=== PATIENT | male | born 2005 | race Caucasian/White ===

== ENCOUNTER 2023-04-29 20:33 | Emergency (ER) | payer SELFPAY ==
[2023-04-29 20:35] VITALS: BP 137/85; PULSE 68; RESP 15; TEMP 36.2; O2SAT 97; BMI 28.3
--- NOTE | 2023-04-29 21:06 | EX.ED.VIS.PS ---
HPI <RADHA Owen - Last Filed: 04/29/23 21:41> HPI - Psych History of Present Illness Chief Complaint: Suicidal Narrative Narrative: Patient presenting today with suicidal thoughts. He reports that over the past 2 years he has had daily thoughts of suicide. He reports that he does not usually have a specific plan, they are mainly passive thoughts. However, today they became much more severe and persistent. He reports that he had thoughts of stabbing himself in the stomach with a knife with the intent to kill himself. He reports that he has had 2 concussions in his life from wrestling and thinks that that could be the cause of his depression. He does take Lexapro and is compliant with this. He does not follow with a counselor or with psychiatry. He did have a PCP but has not seen her for several months but is still receiving the Lexapro prescriptions. He has never been placed in a psychiatric facility. He denies substance use, visual/auditory/tactile hallucinations, homicidal thoughts. He reports that he does feel paranoid when left alone as if somebody is watching him. <Dr. Heraclio Mcgee MD - Last Filed: 05/01/23 21:52> HPI - Psych History of Present Illness Detail of Chief Complaint: Suicidal thoughts and depression PFSH <RADHA Owen - Last Filed: 04/29/23 21:41> PFSH Home Medications escitalopram oxalate 10 mg tablet 10 mg PO DAILY 04/29/23 [History Last Taken Unknown] Allergy/AdvReac Type Severity Reaction Status Date / Time No Known Allergies Allergy Verified 04/29/23 20:35 Social History Smoking Status: Never smoker ROS <RADHA Owen - Last Filed: 04/29/23 21:41> ROS ED Constitutional Constitutional ED: Denies chills or fever(s) Cardiovascular Cardiovascular: Denies chest pain Respiratory/Chest Respiratory/Chest: Denies cough or dyspnea Gastrointestinal Gastrointestinal: Denies abdominal pain, nausea or vomiting Musculoskeletal Musculoskeletal: Denies arthralgias or myalgias Integumentary Denies rash Neurologic Neurologic: Denies weakness Psychiatric Psychiatric: Reports depression, paranoia, suicidal ideation and suicidal thoughts EXAM <RADHA Owen - Last Filed: 04/29/23 21:41> Physical Exam Const Vital Signs: 04/29/23 20:35 04/29/23 21:35 04/29/23 22:00 Temperature 97.2 F L Temperature Source Temporal Pulse Rate 68 Respiratory Rate 15 16 16 Blood Pressure 137/85 H Blood Pressure Mean 102 Pulse Ox 97 Oxygen Delivery Method Room Air 04/29/23 23:00 04/30/23 00:00 04/30/23 01:00 Temperature Temperature Source Pulse Rate Respiratory Rate 16 16 15 Blood Pressure Blood Pressure Mean Pulse Ox Oxygen Delivery Method 04/30/23 01:50 Temperature Temperature Source Pulse Rate 69 Respiratory Rate 16 Blood Pressure 110/65 Blood Pressure Mean 80 Pulse Ox 98 Oxygen Delivery Method Room Air Positive well nourished, well developed and no apparent distress General Appearance ED: well developed HEENT Reports normocephalic and head/scalp atraumatic Mouth ED: Yes moist mucous membranes normal Eyes PERRL and EOMs intact bilaterally Neck full ROM and supple Chest Wall inspection of chest normal Resp normal respiratory effort and clear to auscultation bilaterally Cardio regular rate and regular rhythm GI soft to palpation, non-tender, non-distended and no masses Back/Spine normal ROM and normal to inspection Extremity normal to inspection and full ROM Neuro oriented x3, CN's II-XII intact bilaterally, moves all extremities, no focal motor deficits and no sensory deficits noted Sensorium / Orientation: awake and alert Psych cooperative Appearance: grossly normal Attitude: calm Activity / Motor Behavior: appropriate eye contact Speech: normal speech Mood & Affect: depressed Thought Content: suicidality, No homicidality, phobia(s) and No hallucination(s) Attention / Concentration: attention grossly intact Memory / Cognition: memory grossly intact Insight: poor Judgement: poor Skin no rashes or lesions noted and no wounds <Dr. Heraclio Mcgee MD - Last Filed: 05/01/23 21:52> Physical Exam Const Vital Signs: 04/29/23 20:35 04/29/23 21:35 04/29/23 22:00 Temperature 97.2 F L Temperature Source Temporal Pulse Rate 68 Respiratory Rate 15 16 16 Blood Pressure 137/85 H Blood Pressure Mean 102 Pulse Ox 97 Oxygen Delivery Method Room Air 04/29/23 23:00 04/30/23 00:00 04/30/23 01:00 Temperature Temperature Source Pulse Rate Respiratory Rate 16 16 15 Blood Pressure Blood Pressure Mean Pulse Ox Oxygen Delivery Method 04/30/23 01:50 Temperature Temperature Source Pulse Rate 69 Respiratory Rate 16 Blood Pressure 110/65 Blood Pressure Mean 80 Pulse Ox 98 Oxygen Delivery Method Room Air <Dr. Michele Lyman, - Last Filed: 04/30/23 04:40> Physical Exam Const Vital Signs: 04/29/23 20:35 04/29/23 21:35 04/29/23 22:00 Temperature 97.2 F L Temperature Source Temporal Pulse Rate 68 Respiratory Rate 15 16 16 Blood Pressure 137/85 H Blood Pressure Mean 102 Pulse Ox 97 Oxygen Delivery Method Room Air 04/29/23 23:00 04/30/23 00:00 04/30/23 01:00 Temperature Temperature Source Pulse Rate Respiratory Rate 16 16 15 Blood Pressure Blood Pressure Mean Pulse Ox Oxygen Delivery Method 04/30/23 01:50 Temperature Temperature Source Pulse Rate 69 Respiratory Rate 16 Blood Pressure 110/65 Blood Pressure Mean 80 Pulse Ox 98 Oxygen Delivery Method Room Air MDM <RADHA Owen - Last Filed: 04/29/23 21:41> MDM MDM Narrative Medical decision making narrative: Patient presenting due to suicidal thoughts. He reports that he has had these daily over the past 2 years, however they are mainly passive thoughts. Today they became more constant and he had a specific plan in place which was to stab himself in the stomach with a knife. He reports that he does still feel suicidal. He has never been placed in psychiatric facility before. Medical: Clearance labs will be obtained and crisis will evaluate patient. Lab Data Labs: Laboratory Results - last 24 hr 04/29/23 21:33 WBC 8.0 RBC 5.39 Hgb 15.4 Hct 44.8 MCV 83.1 MCH 28.6 MCHC 34.4 RDW Std Deviation 36.1 RDW Coeff of Vickie 11.9 Plt Count 251 MPV 10.7 Immature Gran % (Auto) 0.100 Neut % (Auto) 59.5 Lymph % (Auto) 27.2 [place] % (Auto) 5.8 Eos % (Auto) 6.9 H Baso % (Auto) 0.5 Absolute Neuts (auto) 4.7 Absolute Lymphs (auto) 2.17 Nucleated RBC % 0 Sodium 140 Potassium 3.8 Chloride 109 H Carbon Dioxide 27.0 Anion Gap 4 L BUN 20 H Creatinine 0.97 Estim Creat Clear Calc 112.47 Est GFR (MDRD) Af Amer 127 Est GFR (MDRD) Non-Af 105 BUN/Creatinine Ratio 20.6 H Glucose 102 Calcium 9.7 Urine Opiates Screen NEGATIVE Urine Methadone Screen NEGATIVE Ur Barbiturates Screen NEGATIVE Ur Phencyclidine Scrn NEGATIVE Ur Amphetamines Screen NEGATIVE MDMA (Ecstasy) Screen NEGATIVE U Benzodiazepines Scrn NEGATIVE Urine Cocaine Screen NEGATIVE U Cannabinoids Screen NEGATIVE Ur Drug Screen Comment Ethyl Alcohol < 3.0 <Dr. Heraclio Mcgee MD - Last Filed: 05/01/23 21:52> MDM MDM Narrative Medical decision making narrative: Patient presenting due to suicidal thoughts. He reports that he has had these daily over the past 2 years, however they are mainly passive thoughts. Today they became more constant and he had a specific plan in place which was to stab himself in the stomach with a knife. He reports that he does still feel suicidal. He has never been placed in psychiatric facility before. Medical: Clearance labs will be obtained and crisis will evaluate patient. I have personally performed a face to face assessment of the patient and have reviewed the SG Note. I performed a substantive portion of the visit including all aspects of the following. My melendez findings include: History is remarkable for depression for the past 2 years. He is never attempted suicide in the past. He had thoughts of suicide for the past 2 years. Worse tonight. This is the first time that he had a plan. He would stab himself in the epigastric area. He denies drug or alcohol use. He denies headache, visual, ocular auditory symptoms. He denies cardiac or respiratory symptoms. He denies GI symptoms. He denies urologic symptoms. Exam is remarkable for patient admitted he is sad depressed under significant financial stress. He states he is concerned because he never had a plan of killing himself. He is psychomotor skills are slow. His significant other is here with him. She confirmed that they are under financial stress. There is no issues at work. There is no issues with his significant other. Significant arthritic confirmed/substantiated this. HEENT exam is unremarkable. Neck is supple. Lungs are clear auscultation. Heart is regular. Rate is normal. There is no murmur, gallop or rub. Abdomen is benign. Is alert is oriented x 3. Motor sensor intact. There is no dermatologic lesions noted. There is no evidence of prior self injury. Medical Decision Making with patient being depressed lethal plan and concern he will act on this plan is still has suicidal thoughts appropriate labs were obtained for medical clearance and counseling center will be paged for evaluation and probable admission Other additions or changes: [None] Lab Data Lab results narrative: Patient's labs were pending at the time of transfer of care [address] Menchaca. Labs: Laboratory Results - last 24 hr 04/29/23 21:33 WBC 8.0 RBC 5.39 Hgb 15.4 Hct 44.8 MCV 83.1 MCH 28.6 MCHC 34.4 RDW Std Deviation 36.1 RDW Coeff of Vickie 11.9 Plt Count 251 MPV 10.7 Immature Gran % (Auto) 0.100 Neut % (Auto) 59.5 Lymph % (Auto) 27.2 [place] % (Auto) 5.8 Eos % (Auto) 6.9 H Baso % (Auto) 0.5 Absolute Neuts (auto) 4.7 Absolute Lymphs (auto) 2.17 Nucleated RBC % 0 Sodium 140 Potassium 3.8 Chloride 109 H Carbon Dioxide 27.0 Anion Gap 4 L BUN 20 H Creatinine 0.97 Estim Creat Clear Calc 112.47 Est GFR (MDRD) Af Amer 127 Est GFR (MDRD) Non-Af 105 BUN/Creatinine Ratio 20.6 H Glucose 102 Calcium 9.7 Urine Opiates Screen NEGATIVE Urine Methadone Screen NEGATIVE Ur Barbiturates Screen NEGATIVE Ur Phencyclidine Scrn NEGATIVE Ur Amphetamines Screen NEGATIVE MDMA (Ecstasy) Screen NEGATIVE U Benzodiazepines Scrn NEGATIVE Urine Cocaine Screen NEGATIVE U Cannabinoids Screen NEGATIVE Ur Drug Screen Comment Ethyl Alcohol < 3.0 <Dr. Michele Lyman, DO - Last Filed: 04/30/23 04:40> MDM Lab Data Labs: Laboratory Results - last 24 hr 04/29/23 21:33 WBC 8.0 RBC 5.39 Hgb 15.4 Hct 44.8 MCV 83.1 MCH 28.6 MCHC 34.4 RDW Std Deviation 36.1 RDW Coeff of Vickie 11.9 Plt Count 251 MPV 10.7 Immature Gran % (Auto) 0.100 Neut % (Auto) 59.5 Lymph % (Auto) 27.2 [place] % (Auto) 5.8 Eos % (Auto) 6.9 H Baso % (Auto) 0.5 Absolute Neuts (auto) 4.7 Absolute Lymphs (auto) 2.17 Nucleated RBC % 0 Sodium 140 Potassium 3.8 Chloride 109 H Carbon Dioxide 27.0 Anion Gap 4 L BUN 20 H Creatinine 0.97 Estim Creat Clear Calc 112.47 Est GFR (MDRD) Af Amer 127 Est GFR (MDRD) Non-Af 105 BUN/Creatinine Ratio 20.6 H Glucose 102 Calcium 9.7 Urine Opiates Screen NEGATIVE Urine Methadone Screen NEGATIVE Ur Barbiturates Screen NEGATIVE Ur Phencyclidine Scrn NEGATIVE Ur Amphetamines Screen NEGATIVE MDMA (Ecstasy) Screen NEGATIVE U Benzodiazepines Scrn NEGATIVE Urine Cocaine Screen NEGATIVE U Cannabinoids Screen NEGATIVE Ur Drug Screen Comment Ethyl Alcohol < 3.0 Treatment and Re-Evaluation Narrative: Care of the patient was turned over to sc pending labs. CBC was reviewed and was within normal limits. Basic metabolic profile was reviewed and was essentially within normal limits. Urine tox screen was reviewed and was negative. Serum alcohol level was reviewed and was negative. Patient is medically cleared for psychiatric placement. Patient was accepted to [facility]. Patient will be transferred there. [place] slip was filled out and placed on the chart. Discharge Plan Triage Chief Complaint: Suicidal ED Midlevel Provider: Brenna Quiñonez ED Provider: Heraclio Mcgee Dx/Rx/DC Orders Clinical Impression: Suicidal ideations, Depression Prescriptions: No Action escitalopram oxalate 10 mg tablet 10 mg PO DAILY Patient Comments: TAKE 1 TABLET BY MOUTH EVERY DAY Primary Care Provider: Care Physician,No Primary Referrals: Care Physician,No Primary [Primary Care Provider] - Disposition Disposition: Psychiatric Hospital or Unit Discharge Location: [facility] Discharge Date/Time: 04/30/23 09:07
[2023-04-29 21:35] VITALS: RESP 16
[2023-04-29 21:54] LABS: Absolute Lymphocyte Count 2.17 X10^3/uL (0.83-4.51); Absolute Neutrophil Count 4.7 X10^3/uL (2.0-7.7); Basophil# 0.04 X10^3/uL; Basophil% 0.5 % (0-1); Eosinophil# 0.55 X10^3/uL; Eosinophils% 6.9 % (0-5); Hematocrit 44.8 % (40-54); Hemoglobin 15.4 g/dL (13.0-16.5); Lymphocyte # 2.17 X10^3/ul (0.83-4.51); Lymphocyte % 27.2 % (19-41); Mean Corp Hgb Conc 34.4 g/dL (32-36); Mean Corpuscular Hgb 28.6 pg (27.0-32.0); Mean Corpuscular Volume 83.1 fL (80-94); Mean Platelet Vol. 10.7 fl (6.2-12.0); Monocyte# 0.46 X10^3/uL; Monocyte% 5.8 % (0-10); NRBC Flagged by Analyzer 0 % (0-5); Neutrophil # 4.74 X10^3/uL (2.7-7.7); Neutrophil % 59.5 % (47-70); Platelet Count 251 K/mm3 (150-450); RBC Distribution Width CV 11.9 % (11.6-14.6); RBC Distribution Width SD 36.1 fl (35.1-43.9); Red Blood Count 5.39 M/mm3 (4.6-6.2)
[2023-04-29 22:00] VITALS: RESP 16
[2023-04-29 22:07] LABS: Anion Gap 4 (5-15); BUN 20 mg/dL (7-18); BUN/Creat Ratio 20.6 RATIO (10-20); Calcium,Total 9.7 mg/dL (8.5-10.1); Chloride 109 mmol/L (98-107); Creatinine, Serum 0.97 mg/dL (0.70-1.30); EST Glomerular Filtration Rate 105 mL/min (>60); Est Glom Filt Rate - Afr Amer 127 mL/min (>60); Estimated Creatinine Clearance 112.47 ml/min; Glucose 102 mg/dL (74-106); Potassium 3.8 mmol/L (3.5-5.1); Sodium Level 140 mmol/L (136-145)
[2023-04-29 22:09] LABS: Alcohol, Blood (Medical)-Serum < 3.0 mg/dL
[2023-04-29 22:14] LABS: Amphetamine Urine VISTA NEGATIVE (<1000 ng/mL); Barbiturate Urine VISTA NEGATIVE (< 200 ng/mL); Benzodiazepine Urine VISTA NEGATIVE (< 200 ng/mL); Cocaine Urine VISTA NEGATIVE (< 300 ng/mL); Ecstacy Urine VISTA NEGATIVE (< 500 ng/mL); Methadone Urine VISTA NEGATIVE (< 300 ng/mL); PCP Urine VISTA NEGATIVE (< 25 ng/mL); THC Urine VISTA NEGATIVE (< 50 ng/mL); Vista UDS pH Range 5
--- NOTE | 2023-04-29 22:25 | NURSING ---
CALLED [facility]ISIS AT 0 AND FAXED THE CHART
[2023-04-29 23:00] VITALS: RESP 16
[2023-04-30] VITALS (9 sets, daily range): BP systolic 110–113; BP diastolic 65–71; PULSE 67–70; RESP 15–18; TEMP 36.6; O2SAT 98–99
== END 2023-04-30 09:07 ==
PROVIDERS: Physician Assistant; Emergency Provider Emergency Medicine; Visit Provider Emergency Medicine
DX: R45.851 Suicidal ideations (principal); F32.A Depression, unspecified; Z79.899 Other long term (current) drug therapy
CPT/HCPCS: 80048; 80307; 80320; 85025; 99285; G0480

== ENCOUNTER 2023-08-23 09:02 | Emergency (ER) | payer OTHER, SELFPAY ==
[2023-08-23 09:03] VITALS: BP 117/73; PULSE 85; PULSE 88; RESP 16; TEMP 36.2; O2SAT 97; BMI 28.5
--- NOTE | 2023-08-23 09:07 | ED.VIS.CHEST ---
HPI History of Present Illness Chief Complaint: [facility] ?Medication ?Instructions ?Recorded ?Last Taken ?Type escitalopram oxalate 10 mg tablet 10 mg PO DAILY 04/29/23 Unknown History Allergy/AdvReac Type Severity Reaction Status Date / Time No Known Allergies Allergy Verified 08/23/23 09:03 Social History Smoking Status: Never smoker EXAM Physical Exam Const Vital Signs: 08/23/23 09:03 08/23/23 09:03 08/23/23 09:10 Temperature 97.1 F L 97.1 F L Temperature Source Temporal Temporal Pulse Rate 85 88 Respiratory Rate 16 16 Blood Pressure 117/73 Blood Pressure Mean 87 Pulse Ox 97 97 Oxygen Delivery Method Room Air Room Air Room Air 08/23/23 10:41 Temperature 97.8 F Temperature Source Pulse Rate 73 Respiratory Rate 16 Blood Pressure 121/64 H Blood Pressure Mean 83 Pulse Ox 99 Oxygen Delivery Method Heart Score History: Slightly/Non-Suspicious ECG: Normal Age: </= 45 years Risk Factors: No Risk Factors Troponin: </= Normal Limit Score: 0 MDM MDM MDM Narrative Medical decision making narrative: HISTORY OF PRESENT ILLNESS: 18-year-old male presents with concern for chest pain. He states Pain started yesterday. He notes pain is worse with taking a breath and coughing. No bleeding diathesis. No hemoptysis. No leg swelling. No syncope. No family history of early cardiac . No family history of blood clots. Does not smoke or drink. Does not do any illicit drug The patient denies recent surgery in the last 4 weeks or immobilization in the last 3 days, denies previous diagnosis of DVT or PE, hemoptysis, unilateral leg swelling or malignancy with treatment the last 6 months or palliative. No estrogen use noted. Patient denies sudden onset of pain, no tearing sensation, no migratory symptoms, no new numbness, weakness or loss of sensation. Patient denies family history or personal history of Connective tissue disorders (Marfan's Syndrome, Mary Danlos etc) REVIEW OF SYSTEMS: Pertinent positives: Chest pain, cough Pertinent negatives: As per HPI PHYSICAL EXAM: Nursing triage notes reviewed, Vital signs reviewed Constitutional: please see mdm HENT: MMM Eyes: Pupils equal round and reactive to light, Extraocular muscles intact Neck: No stridor, no JVD, full neck ROM Lungs: Clear to auscultation, No wheezing or rales. No increased work of breathing, no conversational dyspnea, no accessory muscle use, no nasal flaring. No respiratory distress noted Heart: Regular rate and rhythm, No murmurs, No rubs and No gallops, 2+ distal pulses (radial, femoral, posterior tibial) in all extremities Abdomen: Soft, there is no tenderness, rigidity, rebound or guarding, no obvious peritoneal signs, no palpable pulsatile abdominal masses, no auscultated abdominal bruit : No CVAT Extremities: No edema Neuro: No focal neurological deficits, cranial nerves II through XII intact, 5/5 strength in all extremities. Intact sensation to light touch in all extremities, 2+ reflexes bilateral patella tendons. Normal gait. No ataxia. Skin: No rash or lesions noted MEDICAL DECISION MAKING: Chief Complaint: Chest pain External records reviewed: No recent cardiac catheterizations, stress test or echocardiograms noted in the chart Factors affecting care: none Social determinants of health: Denies cocaine or methamphetamine History obtained from others: none Consults: none [facility] Narrative: The patient was hemodynamically stable, afebrile and nontoxic-appearing. Exam with reproducible chest wall tenderness over the right pectoralis muscle. Also reproducible tenderness with shoulder external rotation as well as abduction. This consistent with a musculoskeletal etiology. I considered the following differential diagnosis: ACS, arrhythmia, anemia, electrolyte disturbance, pneumonia, pneumothorax, pleurisy, PE While I considered PE as a potential etiology I do not think the patient had a PE. There is medication for deficiency of the chest noted ALL IMAGES (IF OBTAINED) HAVE BEEN PERSONALLY REVIEWED AND INTERPRETED BY MYSELF. EKG with normal sinus rhythm, normal axis, normal intervals, no obvious STEMI, no signs of WPW, ARVD or Brugada syndrome CBC without leukocytosis, severe anemia, no thrombocytopenia. High-sensitivity troponin is negative, no evidence of myocardial ischemia BMP without evidence of significant electrolyte abnormalities, no anion gap, no acute kidney injury. I have personally reviewed the patient's chest x-ray. Chest x-ray is unremarkable for pulmonary edema, pneumothorax, pneumonia or focal cardiopulmonary abnormality. The synthesis of the patient's history, physical exam, labs images suggest no acute life-limiting etiology. Suspected etiology secondary to chest wall pain/inflammation. I completed a HEART Score to screen for Major Adverse Cardiac Event (MACE) in this patient. The evidence indicates that the patient is very low risk for MACE and this is consistent with my clinical intuition. The risk of further workup or hospitalization for MACE is likely higher than the risk of the patient having a MACE. It is, therefore, in the patient?s best interest not to do additional emergent testing or to be hospitalized for MACE at this time. Shared Decision-Making No hospitalization indicated I have discussed with the patient my clinical impression and the result of the HEART Score to screen for MACE, as well as the risks of further testing and hospitalization. The HEART Score shows that the risk for MACE is less than 1%. Although the risk of MACE has not been completely eliminated, the risks of further testing or hospitalization for MACE likely exceed any potential benefit, and the patient agrees with not pursuing further emergent evaluation or hospitalization for MACE at this time. Synthesis of the patient's history, physical exam, The patient and/or family, caregivers express understanding. The patient and/or family, caregivers agrees with the plan. Shared decision making: I will have a discussion with the patient and or visitors regarding risk/benefits of further testing or admission. They will be made aware of of the risk/benefits inherent in this decision they will be given the opportunity to voice understanding. Total critical care time today provided was at least 0 [] minutes. This excludes separately billable procedures. Critical care time (if documented) is secondary to the patient having high probability of clinically significant/life threatening deterioration in the patient's condition which required my urgent intervention. Impression: 1. Chest wall pain Dispo: Discharge This note was generated with [employer] dictation software. It may contain incorrect words, spelling, and punctuation that were not noted in review of the chart prior to signing. Lab Data Labs: Laboratory Results - last 24 hr 08/23/23 09:25 WBC 6.8 RBC 5.17 Hgb 15.1 Hct 43.8 MCV 84.7 MCH 29.2 MCHC 34.5 RDW Std Deviation 36.0 RDW Coeff of Vickie 11.9 Plt Count 232 MPV 10.2 Immature Gran % (Auto) 0.300 Neut % (Auto) 65.1 Lymph % (Auto) 23.3 [place] % (Auto) 6.8 Eos % (Auto) 4.1 Baso % (Auto) 0.4 Absolute Neuts (auto) 4.4 Absolute Lymphs (auto) 1.58 Nucleated RBC % 0 Sodium 139 Potassium 4.0 Chloride 109 H Carbon Dioxide 24.0 Anion Gap 6 BUN 26 H Creatinine 0.96 Estim Creat Clear Calc 113.92 Est GFR (MDRD) Af Amer 129 Est GFR (MDRD) Non-Af 106 BUN/Creatinine Ratio 27.2 H Glucose 94 Calcium 9.2 Troponin I High Sens 12 Radiography Diagnostic Testing: Clinical Impression(s) from Imaging Studies Chest X-Ray 08/23/23 09:40 IMPRESSION: Normal x-ray examination of the chest. Electronically Signed: Angel Akers MD at 10:00 EDT Reading Location ID and State: [address] [place] [address] , Service support , Discharge Plan Triage Chief Complaint: Chest Pain ED Provider: Lopez Garcia Dx/Rx/DC Orders Instructions: ED Chest Wall Strain Prescriptions: No Action escitalopram oxalate 10 mg tablet 10 mg PO DAILY Patient Comments: TAKE 1 TABLET BY MOUTH EVERY DAY Primary Care Provider: Leigha Rasmussen NP Referrals: Leigha Rasmussen NP, [facility] [Primary Care Provider] - Activity Restrictions/Additional Instructions: Thank you for trusting us with your care today! Please take Tylenol (2 pills, 650 mg), ibuprofen (2 pills, 400 mg) every 6 hours as needed for pain and fever control. Please return to the emergency department if your symptoms change or worsen. Please follow with your primary care physician for further outpatient evaluation and management. Print Language: Pashto Disposition Disposition: Home, Self Care Discharge Date/Time: 08/23/23 10:45
--- NOTE | 2023-08-23 09:10 | EKG12_ITS ---
Test Reason : Blood Pressure : / mmHG Vent. Rate : 068 BPM Atrial Rate : 068 BPM P-R Int : 144 ms QRS Dur : 082 ms QT Int : 378 ms P-R-T Axes : 074 060 032 degrees QTc Int : 401 ms Normal sinus rhythm Normal ECG Confirmed by ALEXIA SILVA MD ([id number]), greeting card editor CLEVE PHILLIPS ([id number]) on 08/25/2023 7:27:14 AM Referred By: ADINA Confirmed By:ALEXIA SILVA MD
[2023-08-23 09:33] LABS: Absolute Lymphocyte Count 1.58 X10^3/uL (0.83-4.51); Absolute Neutrophil Count 4.4 X10^3/uL (2.0-7.7); Basophil# 0.03 X10^3/uL; Basophil% 0.4 % (0-1); Eosinophil# 0.28 X10^3/uL; Eosinophils% 4.1 % (0-5); Hematocrit 43.8 % (40-54); Hemoglobin 15.1 g/dL (13.0-16.5); Lymphocyte # 1.58 X10^3/ul (0.83-4.51); Lymphocyte % 23.3 % (19-41); Mean Corp Hgb Conc 34.5 g/dL (32-36); Mean Corpuscular Hgb 29.2 pg (27.0-32.0); Mean Corpuscular Volume 84.7 fL (80-94); Mean Platelet Vol. 10.2 fl (6.2-12.0); Monocyte# 0.46 X10^3/uL; Monocyte% 6.8 % (0-10); NRBC Flagged by Analyzer 0 % (0-5); Neutrophil # 4.41 X10^3/uL (2.7-7.7); Neutrophil % 65.1 % (47-70); Platelet Count 232 K/mm3 (150-450); RBC Distribution Width CV 11.9 % (11.6-14.6); Red Blood Count 5.17 M/mm3 (4.6-6.2); White Blood Count 6.8 K/mm3 (4.4-11.0)
--- NOTE | 2023-08-23 09:40 | RAD_ITS ---
STUDY: X-RAY CHEST REASON FOR EXAM: Male, 18 years old. Chest pain. TECHNIQUE: Single frontal view of the chest. COMPARISON: None. FINDINGS: The lungs are clear and expanded. There is no demonstrated pleural abnormality. Normal size heart. Normal mediastinum and jose. Normal visualized pulmonary arteries. Normal visualized aortic arch and descending thoracic aorta. No abnormality of the visualized soft tissue structures of the upper abdomen. RAD/Chest 1 View (Portable) IMPRESSION: Normal x-ray examination of the chest. Electronically Signed: Angel Akers MD at 10:00 EDT ,
[2023-08-23 10:02] LABS: Anion Gap 6 (5-15); BUN 26 mg/dL (7-18); BUN/Creat Ratio 27.2 RATIO (10-20); Calcium,Total 9.2 mg/dL (8.5-10.1); Chloride 109 mmol/L (98-107); Creatinine, Serum 0.96 mg/dL (0.70-1.30); EST Glomerular Filtration Rate 106 mL/min (>60); Est Glom Filt Rate - Afr Amer 129 mL/min (>60); Estimated Creatinine Clearance 113.92 ml/min; Glucose 94 mg/dL (74-106); Sodium Level 139 mmol/L (136-145); Troponin-I HS (w/2H Reflex) 12 pg/mL (3.0-78.0)
[2023-08-23 10:41] VITALS: BP 121/64; PULSE 73; RESP 16; TEMP 36.6; O2SAT 99
[2023-08-23 11:30] LABS: Reflex Troponin-HS? (from REC) Y
== END 2023-08-23 10:45 | disposition home or self-care (01) ==
PROVIDERS: Emergency Provider Emergency Medicine; PCP Internal Medicine; Visit Provider Emergency Medicine
DX: R07.89 Other chest pain (principal)
CPT/HCPCS: 71045; 80048; 84484; 85025; 93005; 99283